=== PATIENT | female | born 1970 | race American Indian/Alaskan Native ===

== ENCOUNTER 2017-09-11 09:12 | Emergency (ER) | payer OTHER ==
[2017-09-11] MEDS ORDERED: CATAPRES PO ONE (10:17)
--- NOTE | 2017-09-11 10:21 | Emergency Department Report ---
ED General Adult HPI - General Chief complaint: Headache Stated complaint: HEADACHE/ HBP Time Seen by Provider: 09/11/17 10:02 Source: patient Mode of arrival: Ambulatory Limitations: No Limitations - History of Present Illness Initial comments: Patient is a 47-year-old female with history of hypertension. Patient came to the ER with her who is the patient in the ER. Patient stated that she did not take her blood pressure medicine for the last 2 days and now she is complaining of slight headache. Her blood pressure is 187/110. Patient denied any weakness, numbness or tingling sensation. No neck pain. Patient denied any bowel or bladder incontinence. No chest pain or shortness of breath. Severity scale (0 -10): 10 - Related Data Allergies Allergy/AdvReac Type Severity Reaction Status Date / Time hydromorphone [From Dilaudid] Allergy Unknown Verified 09/11/17 09:18 ED Review of Systems ROS: Stated complaint: HEADACHE/ HBP Other details as noted in HPI Comment: All other systems reviewed and negative Constitutional: denies: chills, fever Respiratory: denies: cough, orthopnea, shortness of breath, SOB with exertion, SOB at rest, wheezing Cardiovascular: denies: chest pain, palpitations, dyspnea on exertion Gastrointestinal: denies: abdominal pain, nausea, vomiting, hematochezia Genitourinary: denies: urgency, dysuria, frequency, hematuria, abnormal menses, dyspareunia Neurological: headache. denies: weakness, numbness, paresthesias, confusion Psychiatric: denies: anxiety ED Past Medical Hx - Past Medical History Hx Hypertension: Yes Hx Arthritis: Yes Additional medical history: Obesity, Hypothyroidism, anemia - Social History Smoking Status: Current Every Day Smoker ED Physical Exam - General Limitations: No Limitations General appearance: alert, in no apparent distress - Head Head exam: Present: atraumatic, normocephalic, normal inspection - Eye Eye exam: Present: normal appearance - ENT ENT exam: Present: normal exam, normal orophraynx, mucous membranes moist - Neck Neck exam: Present: normal inspection, full ROM. Absent: tenderness, meningismus, lymphadenopathy, thyromegaly - Respiratory Respiratory exam: Present: normal lung sounds bilaterally. Absent: respiratory distress, wheezes, rales, rhonchi, accessory muscle use, decreased breath sounds , prolonged expiratory - Cardiovascular Cardiovascular Exam: Present: regular rate, normal rhythm, normal heart sounds - GI/Abdominal GI/Abdominal exam: Present: soft, normal bowel sounds. Absent: distended, tenderness, guarding, rebound, rigid, diminished bowel sounds, organomegaly, mass, bruit, pulsatile mass, hernia - Extremities Exam Extremities exam: Present: normal inspection, full ROM, normal capillary refill - Back Exam Back exam: Present: normal inspection, full ROM. Absent: tenderness, CVA tenderness (R), CVA tenderness (L), muscle spasm, paraspinal tenderness, vertebral tenderness - Neurological Exam Neurological exam: Present: alert, oriented X3, CN II-XII intact, normal gait - Skin Skin exam: Present: warm, intact, normal color ED Course Vital Signs 09/11/17 09/11/17 09:19 13:39 Temperature 98.5 F Pulse Rate 85 62 Respiratory 18 16 Rate Blood Pressure 187/99 136/85 [Left] O2 Sat by Pulse 99 100 Oximetry ED Medical Decision Making - Lab Data Result diagrams: 09/11/17 10:26 09/11/17 10:26 - Medical Decision Making Patient blood pressure is down to 136/82. No headache. Patient denying any weakness numbness or tingling sensation. Critical care attestation.: If time is entered above; I have spent that time in minutes in the direct care of this critically ill patient, excluding procedure time. ED Disposition Clinical Impression: Malignant hypertension Disposition: DC-01 TO HOME OR SELFCARE Is pt being admited?: No Condition: Stable Instructions: Hypertension (ED) Referrals: PRIMARY CARE, [Primary Care Provider] - 3-5 Days
[2017-09-11 13:01] LABS: Basophils % (Auto) 0.5 % (0.0-1.8); Eosinophils # (Auto) 0.1 K/mm3 (0.0-0.4); Eosinophils % (Auto) 0.7 % (0.0-4.3); Hematocrit 30.3 % (30.3-42.9); Hemoglobin 9.3 gm/dl (10.1-14.3); Lymphocytes # (Auto) 1.6 K/mm3 (1.2-5.4); Lymphocytes % (Auto) 21.5 % (13.4-35.0); Mean Corpuscular HGB Conc 31 % (30-34); Mean Corpuscular Hemoglobin 22 pg (28-32); Mean Corpuscular Volume 72 fl (79-97); Monocytes # (Auto) 0.4 K/mm3 (0.0-0.8); Monocytes % (Auto) 5.2 % (0.0-7.3); Platelet Count 361 K/mm3 (140-440); Red Blood Count 4.22 M/mm3 (3.65-5.03); Red Cell Distribution Width 19.6 % (13.2-15.2)
[2017-09-11 13:05] LABS: BUN/Creatinine Ratio 20; Blood Urea Nitrogen 12 mg/dL (7-17); Calcium 9.2 mg/dL (8.4-10.2); Hemolysis Index 1
[2017-09-11 13:40] VITALS: BP 136/85
[2017-09-11] MEDS ORDERED: TYLENOL ONE (13:56)
[2017-09-11] MEDS ORDERED: TYLENOL PO ONE (14:01)
== END 2017-09-11 14:04 | disposition home or self-care (01) ==
LOC: ED 09:12
DX: I10 Essential (primary) hypertension (principal); M19.90 Unspecified osteoarthritis, unspecified site; F17.200 Nicotine dependence, unspecified, uncomplicated; E03.9 Hypothyroidism, unspecified; Z86.2 Personal history of diseases of the blood and blood-forming organs and certain disorders involving the immune mechanism; Z88.6 Allergy status to analgesic agent
CPT/HCPCS: 36415; 80048; 85025; 99283